=== PATIENT | male | born 1985 | race American Indian/Alaskan Native ===

== ENCOUNTER 2020-01-31 13:57 | Emergency (ER) | payer SELFPAY ==
[2020-01-31 14:10] VITALS: BP 127/84
[2020-01-31] MEDS ORDERED: ONDANSETRON 4 MG ODT TAB ONE (14:29)
[2020-01-31] MEDS: ONDANSETRON 4 MG ODT TAB PO ONE (14:32)
--- NOTE | 2020-01-31 14:38 | Event Note ---
ED Screening Note Date of service: 01/31/20 Time: 14:30 ED Screening Note: This is a 34 y.o. M. that presents to the ER with abdominal pain, nausea/v/d for 4 hours. Reports eating Bengali food yesterday and sick today. This initial assessment/diagnostic orders/clinical plan/treatment(s) is/are subject to change based on patients health status, clinical progression and re- assessment by fellow clinical providers in the ED. Further treatment and workup at subsequent clinical providers discretion. Patient/guardian urged not to elope from the ED as their condition may be serious if not clinically assessed and managed. Initial orders include: Labs XR abdomen
[2020-01-31 15:04] LABS: Hematocrit 51.1 % (35.5-45.6); Hemoglobin 17.3 gm/dl (11.8-15.2); Mean Corpuscular HGB Conc 34 % (32-34); Mean Corpuscular Volume 87 fl (84-94); Platelet Count 280 K/mm3 (140-440); Red Blood Count 5.89 M/mm3 (3.65-5.03); Red Cell Distribution Width 14.3 % (13.2-15.2)
[2020-01-31 15:11] LABS: Eosinophils % (Auto) 0.2 % (0.0-4.3); Monocytes # (Auto) 0.3 K/mm3 (0.0-0.8)
[2020-01-31 15:23] LABS: Bilirubin,Urine NEG (Negative); Blood,Urine NEG (Negative); Color,Urine Yellow (Yellow); Mucus,Urine 3+ /HPF; Urobilinogen,Urine < 2.0 mg/dL (<2.0)
--- NOTE | 2020-01-31 15:25 | XRay Report ---
ABDOMEN 2 VIEW(S) INDICATION / CLINICAL INFORMATION: Abdominal pain and vomiting. COMPARISON: None available. FINDINGS: TUBES / LINES: None. BOWEL GAS PATTERN: There is mild gaseous distention of the stomach with an air-fluid level in the pro ximal stomach. There are couple of gas-filled loops of proximal small bowel with air-fluid levels. No other significant bowel gas is seen. There is no evidence of mass effect. FREE AIR / EXTRALUMINAL GAS: None seen. ADDITIONAL FINDINGS: There are couple of phleboliths in the left lower pelvis. IMPRESSION: Abnormal, but nonspecific bowel gas pattern. Proximal small bowel or gastric outlet obstr uction is suspected. Gastroenteritis could also have this appearance. Signer Name: Matt Belle MD Signed: 01/31/2020 3:20 PM Workstation Name: [id number]
[2020-01-31 15:31] LABS: Albumin 5.4 g/dL (3.9-5); Calcium 10.2 mg/dL (8.4-10.2)
[2020-01-31] MEDS ORDERED: FAMOTIDINE 20 MG/2 ML INJ IV ONE (15:51)
[2020-01-31] MEDS ORDERED: SODIUM CHLORIDE 0.9% 1000 ML 1,000 ML IV ONE (15:51)
[2020-01-31] MEDS ORDERED: ONDANSETRON 4 MG/2 ML INJ IV ONE (15:51)
[2020-01-31] MEDS ORDERED: PANTOPRAZOLE 40 MG INJ IV ONE (15:53)
[2020-01-31 16:05] LABS: Band Neutrophils # (Manual) 0.8 K/mm3; Basophils % (Manual) 0 % (0.0-1.8); Eosinophils % (Manual) 0 % (0.0-4.3); Platelet Estimate Consistent w Auto; RBC Morphology Normal; Total Cells Counted 100
--- NOTE | 2020-01-31 17:12 | Emergency Department Report ---
ED Abdominal Pain HPI - General Chief Complaint: Abdominal Pain Stated Complaint: STOMACH VIRUS Time Seen by Provider: 01/31/20 14:29 Source: patient Mode of arrival: Ambulatory Limitations: No Limitations - History of Present Illness Initial Comments: Patient is a 34-year-old F [place] male who is here because of nausea vomiting diarrhea. Patient has some epigastric pain as well. Patient has been vomiting nonstop for the last 3 hours. His last meal was [place] food. Patient denies fevers cough cold congestion. Patient has some dizziness when he stands. - Related Data Previous Rx's Medication Instructions Recorded Last Taken Type Ondansetron [Zofran Odt] 4 mg PO Q8HR #10 tab.rapdis 01/31/20 Unknown Rx Allergies Allergy/AdvReac Type Severity Reaction Status Date / Time No Known Allergies Allergy Verified 01/31/20 14:31 ED Review of Systems ROS: Stated complaint: STOMACH VIRUS Other details as noted in HPI Comment: All other systems reviewed and negative ED Past Medical Hx - Past Medical History Previous Medical History?: No - Surgical History Past Surgical History?: No - Social History Smoking Status: Current Every Day Smoker Substance Use Type: Alcohol, Marijuana - Medications Home Medications: Home Medications Medication Instructions Recorded Confirmed Last Taken Type Ondansetron [Zofran Odt] 4 mg PO Q8HR #10 tab.rapdis 01/31/20 Unknown Rx ED Physical Exam - General Limitations: No Limitations General appearance: alert, in distress - Head Head exam: Present: atraumatic, normocephalic - Eye Eye exam: Present: normal appearance - ENT ENT exam: Present: mucous membranes moist - Neck Neck exam: Present: normal inspection - Respiratory Respiratory exam: Present: normal lung sounds bilaterally. Absent: respiratory distress, wheezes, rales, rhonchi - Cardiovascular Cardiovascular Exam: Present: regular rate, normal rhythm. Absent: systolic murmur, diastolic murmur, rubs, gallop - GI/Abdominal GI/Abdominal exam: Present: soft, tenderness, normal bowel sounds. Absent: distended, guarding, rebound - Rectal Rectal exam: Present: deferred - Extremities Exam Extremities exam: Present: normal inspection - Back Exam Back exam: Present: normal inspection - Neurological Exam Neurological exam: Present: alert, oriented X3 - Psychiatric Psychiatric exam: Present: normal affect, normal mood - Skin Skin exam: Present: warm, dry, intact, normal color. Absent: rash ED Course Vital Signs 01/31/20 14:08 Temperature 97.6 F Pulse Rate 82 Respiratory 18 Rate Blood Pressure 127/84 O2 Sat by Pulse 99 Oximetry ED Medical Decision Making - Lab Data Result diagrams: 01/31/20 14:45 01/31/20 14:45 - Radiology Data ABDOMEN 2 VIEW(S) INDICATION / CLINICAL INFORMATION: Abdominal pain and vomiting. COMPARISON: None available. FINDINGS: TUBES / LINES: None. BOWEL GAS PATTERN: There is mild gaseous distention of the stomach with an air- fluid level in the proximal stomach. There are couple of gas-filled loops of proximal small bowel with air-fluid levels. No other significant bowel gas is seen. There is no evidence of mass effect. FREE AIR / EXTRALUMINAL GAS: None seen. ADDITIONAL FINDINGS: There are couple of phleboliths in the left lower pelvis. IMPRESSION: Abnormal, but nonspecific bowel gas pattern. Proximal small bowel or gastric outlet obstruction is suspected. Gastroenteritis could also have this appearance. Signer Name: Matt Belle MD Signed: 01/31/2020 3:20 PM Workstation Name: [id number] Transcribed By: RT Dictated By: Matt Belle MD Electronically Authenticated By: Matt Belle MD Signed Date/Time: 01/31/20 1520 - Medical Decision Making After reviewing the x-ray report and reviewing the films myself does appear that the patient does have gastric distention.'s is likely secondary to gastroenteritis however a obstruction cannot be ruled out at this time. If patient has a partial obstruction he still would be able to have some diarrhea. Patient before going to CT to further delineate the patient's pathology he stated he wanted to go home. States is for now he feels better and his nausea is controlled. Patient was given antiemetics here in emergency department. Patient states his family is in the middle of moving their home and he states since he is feeling better he does not want to get the CT scan. Patient was given all the information regarding the x-ray and his laboratory findings. Did tell the patient that likely he would do well however gastric outlet obstruction was not ruled out completely. Patient states he would like to leave and if he worsens he will return. Patient signed out AGAINST MEDICAL ADVICE. Critical care attestation.: If time is entered above; I have spent that time in minutes in the direct care of this critically ill patient, excluding procedure time. ED Disposition Clinical Impression: Nausea & vomiting Disposition: DC-07 LEFT AGAINST MED ADVICE Is pt being admited?: Yes Does the pt Need Aspirin: No Condition: Stable Referrals: PRIMARY CARE, [Primary Care Provider] - 3-5 Days Forms: AMA Form Time of Disposition: 17:13
== END 2020-01-31 17:22 | disposition left against medical advice (07) ==
LOC: ED 13:57
DX: R11.2 Nausea with vomiting, unspecified (principal); R19.7 Diarrhea, unspecified; R10.13 Epigastric pain; F17.200 Nicotine dependence, unspecified, uncomplicated; F12.10 Cannabis abuse, uncomplicated
CPT/HCPCS: 36415; 74019; 80053; 81001; 83690; 85007; 85025; 96361; 96374; 96375; 99284; C9113; J2405; J7030; Q0162